=== PATIENT | female | born 1985 | race Caucasian/White ===

== ENCOUNTER 2021-11-24 16:47 | Outpatient (CLI) | payer OTHER, SELFPAY ==
--- NOTE | 2021-11-24 16:53 | US_ITS ---
EXAM: US pelvis, OB less than 14 weeks. HISTORY: viability TECHNIQUE: US OB Transvaginal COMPARISON: None. LIMITATIONS: None. UTERUS Size: 9.7 cm x 6.6 cm x 9.5 cm. Retroflexed. Masses: At least 5 uterine nodules and presumed fibroids ranging from 1 cm to 2.9 cm. The cervix is closed. There is no significant mass effect on the gestation sac. Largest fibroid 2.9 cm x 2.9 cm x 2.7 cm at the right fundus, separate from the gestation sac projecting to the left of midline. Gestational sac: Single gestational sac. Mean sac diameter 2.9 cm consistent with 8 weeks 1 day gestation. There is a curvilinear structure which may be part of a larger yolk sac in the single gestation sac or an incomplete septation, possibly from a nonviable twin , this is not measured but is roughly 9 mm on my measurement. Subchorionic hemorrhage: None. Yolk sac: Identified and normal. 4 mm. pole: [place]-rump length is 2 cm corresponding to 8 weeks 2 days gestation. Cardiac activity: heart rate is 161 beats per minute. OVARIES/ADNEXA Right: 1.9 cm x 1.2 cm x 1 1.5 cm with documented blood flow. Left: Not seen. OTHER: No fluid in the cul-de-sac. CONCLUSION: Single live IUP. Estimated gestational age 8 weeks sonographically. Indeterminate curvilinear structure in the gestation sac separate from the visible embryo and its yolk sac, indeterminate etiology, possibly additional larger yolk sac, uncertain etiology and significance. Consider short-term follow-up if it is thought to be indicated. Multi-fibroid uterus, no obvious mass effect on the gestation sac or lower uterine segment. The left ovary is not demonstrated. Electronically Signed: Marisol Toribio MD at 3:13 EDT , US/Transvaginal w/Preg US
== END 2021-11-24 23:59 | disposition home or self-care (01) ==
PROVIDERS: PCP Family Medicine; Referring Provider Obstetrics & Gynecology; Visit Provider Obstetrics & Gynecology
DX: O09.299 Supervision of pregnancy with other poor reproductive or obstetric history, unspecified trimester (principal); Z3A.00 Weeks of gestation of pregnancy not specified
CPT/HCPCS: 76817

== ENCOUNTER 2021-11-30 15:09 | Outpatient (CLI) | payer OTHER, SELFPAY ==
[2021-11-30 15:28] LABS: Absolute Lymphocyte Count 1.28 X10^3/uL (0.83-4.51); Absolute Neutrophil Count 6.1 X10^3/uL (2.0-7.7); Basophil# 0.03 X10^3/uL; Basophil% 0.4 % (0-1); Eosinophil# 0.23 X10^3/uL; Eosinophils% 2.8 % (0-5); Hematocrit 34.2 % (37-47); Hemoglobin 11.5 g/dL (12.0-15.0); Lymphocyte # 1.28 X10^3/ul (0.83-4.51); Lymphocyte % 15.7 % (19-41); Mean Corp Hgb Conc 33.6 g/dL (32-36); Mean Corpuscular Hgb 29.9 pg (27.0-32.0); Mean Corpuscular Volume 88.8 fL (81-99); Mean Platelet Vol. 9.3 fl (6.2-12.0); Monocyte# 0.49 X10^3/uL; NRBC Flagged by Analyzer 0 % (0-5); Neutrophil # 6.12 X10^3/uL (2.7-7.7); Neutrophil % 74.9 % (47-70); Platelet Count 285 K/mm3 (150-450); RBC Distribution Width CV 12.2 % (11.6-14.6); RBC Distribution Width SD 39.2 fl (35.1-43.9); Red Blood Count 3.85 M/mm3 (4.2-5.4); White Blood Count 8.2 K/mm3 (4.4-11.0)
[2021-11-30 18:13] LABS: Amphetamine Urine VISTA NEGATIVE (<1000 ng/mL); Barbiturate Urine VISTA NEGATIVE (< 200 ng/mL); Benzodiazepine Urine VISTA NEGATIVE (< 200 ng/mL); Cocaine Urine VISTA NEGATIVE (< 300 ng/mL); Ecstacy Urine VISTA NEGATIVE (< 500 ng/mL); Methadone Urine VISTA NEGATIVE (< 300 ng/mL); PCP Urine VISTA NEGATIVE (< 25 ng/mL); THC Urine VISTA NEGATIVE (< 50 ng/mL); Vista UDS pH Range 7
[2021-12-01 10:08] LABS: HIV - WCH Non-Reactive (Nonreactive); Hepatitis B Surface Antigen Non-Reactive (Nonreactive); Hepatitis C Antibody Non-Reactive (Nonreactive); Rubella IgG Reactive (Nonreactive); Syphilis Antibodies Non-reactive
[2021-12-05 12:01] LABS: Chlamydia By Nucleic Acid AMP Negative (Negative)
[2021-12-05 12:01] LABS: Thyroid Peroxidase AB 103 IU/mL (0-34)
[2021-12-05 12:19] LABS: Thyroglobulin Antibody 2.3 IU/mL (0.0-0.9)
[2021-12-05 12:28] LABS: Gonococcus By Nucleic Acid AMP Negative (Negative)
[2021-12-07 12:59] LABS: HPV APTIMA, High Risk Negative (Negative)
== END 2021-11-30 23:59 | disposition home or self-care (01) ==
PROVIDERS: PCP Family Medicine; Referring Provider Obstetrics & Gynecology; Visit Provider Obstetrics & Gynecology
DX: Z34.90 Encounter for supervision of normal pregnancy, unspecified, unspecified trimester (principal)
CPT/HCPCS: 36415; 80307; 85025; 86376; 86703; 86762; 86780; 86800; 86803; 86850; 86900; 86901; 87086; 87088; 87340; 87491; 87591; 87624; 88175; G0145

== ENCOUNTER → 2022-04-19 | Outpatient (CLI) | payer OTHER, SELFPAY ==
[2022-04-19 10:14] LABS: Absolute Neutrophil Count 6.7 X10^3/uL (2.0-7.7); Basophil# 0.02 X10^3/uL; Basophil% 0.2 % (0-1); Eosinophil# 0.16 X10^3/uL; Eosinophils% 1.9 % (0-5); Hematocrit 32.6 % (37-47); Hemoglobin 10.8 g/dL (12.0-15.0); Lymphocyte % 10.9 % (19-41); Mean Corp Hgb Conc 33.1 g/dL (32-36); Mean Corpuscular Hgb 30.1 pg (27.0-32.0); Mean Corpuscular Volume 90.8 fL (81-99); Mean Platelet Vol. 9.7 fl (6.2-12.0); NRBC Flagged by Analyzer 0 % (0-5); Neutrophil # 6.65 X10^3/uL (2.7-7.7); Neutrophil % 80.4 % (47-70); Platelet Count 250 K/mm3 (150-450); RBC Distribution Width CV 12.8 % (11.6-14.6); RBC Distribution Width SD 41.9 fl (35.1-43.9); Red Blood Count 3.59 M/mm3 (4.2-5.4); White Blood Count 8.3 K/mm3 (4.4-11.0)
[2022-04-19 10:20] LABS: Glucose Challenge Gest 1H 50g 88 mg/dL (70-140)
== END | disposition home or self-care (01) ==
LOC: PAVLAB 09:52
PROVIDERS: PCP Family Medicine; Referring Provider Obstetrics & Gynecology; Visit Provider Obstetrics & Gynecology
DX: O09.90 Supervision of high risk pregnancy, unspecified, unspecified trimester (principal); Z13.1 Encounter for screening for diabetes mellitus; Z3A.00 Weeks of gestation of pregnancy not specified
CPT/HCPCS: 36415; 82950; 85025

== ENCOUNTER → 2022-06-05 | Outpatient (CLI) | payer OTHER, SELFPAY ==
[2022-06-05 14:14] LABS: Absolute Lymphocyte Count 0.97 X10^3/uL (0.83-4.51); Absolute Neutrophil Count 6.9 X10^3/uL (2.0-7.7); Basophil# 0.01 X10^3/uL; Basophil% 0.1 % (0-1); Eosinophil# 0.22 X10^3/uL; Eosinophils% 2.6 % (0-5); Hemoglobin 12.3 g/dL (12.0-15.0); Lymphocyte # 0.97 X10^3/ul (0.83-4.51); Lymphocyte % 11.3 % (19-41); Mean Corp Hgb Conc 33.2 g/dL (32-36); Mean Corpuscular Hgb 30.8 pg (27.0-32.0); Mean Corpuscular Volume 92.7 fL (81-99); Mean Platelet Vol. 10.3 fl (6.2-12.0); Monocyte# 0.46 X10^3/uL; Monocyte% 5.4 % (0-10); NRBC Flagged by Analyzer 0 % (0-5); Neutrophil # 6.85 X10^3/uL (2.7-7.7); Neutrophil % 80.1 % (47-70); Platelet Count 265 K/mm3 (150-450); RBC Distribution Width SD 44.2 fl (35.1-43.9); Red Blood Count 3.99 M/mm3 (4.2-5.4); White Blood Count 8.6 K/mm3 (4.4-11.0)
== END | disposition home or self-care (01) ==
LOC: PAVLAB 13:55
PROVIDERS: PCP Family Medicine; Referring Provider Registered Nurse; Visit Provider Registered Nurse
DX: O99.019 Anemia complicating pregnancy, unspecified trimester (principal); Z3A.00 Weeks of gestation of pregnancy not specified
CPT/HCPCS: 36415; 85025

== ENCOUNTER → 2022-06-15 | Outpatient (CLI) | payer OTHER, SELFPAY | END | disposition home or self-care (01) | LOC: LABSPEC 06:37 | PROVIDERS: PCP Family Medicine; Visit Provider Obstetrics & Gynecology | DX: O09.90 Supervision of high risk pregnancy, unspecified, unspecified trimester (principal); Z3A.00 Weeks of gestation of pregnancy not specified | CPT/HCPCS: 87077; 87081; 87186 ==

== ENCOUNTER 2022-07-02 21:01 | Inpatient (IN) | payer OTHER, SELFPAY ==
[2022-07-02] VITALS (20 sets, daily range): BP systolic 105–134; BP diastolic 64–83; PULSE 64–92; TEMP 36.6; O2SAT 89–100; BMI 26.1
[2022-07-02] MEDS: LACTATED RINGERS 500 ML 999 ML IV ×2 (20:35→21:10)
[2022-07-02 21:10] LABS: Absolute Lymphocyte Count 1.27 X10^3/uL (0.83-4.51); Absolute Neutrophil Count 9.3 X10^3/uL (2.0-7.7); Basophil# 0.04 X10^3/uL; Basophil% 0.3 % (0-1); Eosinophil# 0.28 X10^3/uL; Eosinophils% 2.4 % (0-5); Hematocrit 38.8 % (37-47); Lymphocyte # 1.27 X10^3/ul (0.83-4.51); Lymphocyte % 10.9 % (19-41); Mean Corp Hgb Conc 33.5 g/dL (32-36); Mean Corpuscular Volume 89.4 fL (81-99); Mean Platelet Vol. 11.7 fl (6.2-12.0); Monocyte# 0.67 X10^3/uL; Monocyte% 5.8 % (0-10); NRBC Flagged by Analyzer 0 % (0-5); Neutrophil # 9.29 X10^3/uL (2.7-7.7); Neutrophil % 79.9 % (47-70); Platelet Count 204 K/mm3 (150-450); RBC Distribution Width SD 42.4 fl (35.1-43.9); Red Blood Count 4.34 M/mm3 (4.2-5.4); White Blood Count 11.6 K/mm3 (4.4-11.0)
[2022-07-02] MEDS: fentaNYL-bupivacaine (epidural) 100 ML BAG EPIDURAL (21:42)
[2022-07-02] MEDS: Lactated Ringers 1,000 ML 50 ML IV (22:00)
[2022-07-02] MEDS: 0.9% Saline Lock 10 ML Syringe IV (22:45)
[2022-07-02] MEDS: Ondansetron 4 MG/2 ML Vial IV (22:45)
[2022-07-03] VITALS (13 sets, daily range): BP systolic 111–135; BP diastolic 53–72; PULSE 56–99; RESP 16–18; TEMP 36.4–36.8; O2SAT 96–100
[2022-07-03] MEDS: Oxytocin 10 UNITS/ML Vial IM (00:18)
--- NOTE | 2022-07-03 00:42 | HP.PCM.OB_ITS ---
HPI - General General Date of Admission: 07/02/22 HPI Narrative GISELLE SCHWARTZ, is a 36 F who presents to L&D with consistent contractions, worsening. denies lof/vb. active fetus. Maternal Data Information DEBBIE Calculator Estimated Delivery Date Method Current WG Current Estimate 07/05/22 LMP (Certain) 39w 5d Final DEBBIE: 07/05/22 Final DEBBIE Source: US <20 weeks [facility] Medical History Anemia Asthma Autoimmune disease Autoimmune thyroiditis Blood clotting disorder Celiac disease Fat pad atrophy of foot Fatigue GERD (gastroesophageal reflux disease) Gingival recession H. 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] Specimen unsatisfactory for diagnosis Superficial varicosities Thyroid disorder TMJ (dislocation of temporomandibular joint) Uterine fibroid in Vitamin D deficiency Home Medications Saccharomyces boulardii 250 mg capsule 250 mg PO BID 11/03/19 [History Last Taken 07/01/22 21:00] digestive enzymes 1 cap PO DAILY 11/03/19 [History Last Taken 07/01/22 21:00] fluticasone propionate 115 mcg-salmeterol 21 mcg/actuation HFA inhaler (Advair HFA) 1 puff inhalation BID 11/03/19 [History Last Taken 07/02/22 08:00] prenat.vits,eddie,wby-npnx-enpzz 1 tab PO DAILY 11/03/19 [History Last Taken 07/01/22] levothyroxine 75 mcg capsule (Tirosint) 75 mcg PO DAILY 11/16/21 [History Last Taken 07/02/22 06:00] breast pump #1 ea 03/22/22 [Rx Last Taken Unknown] Allergy/AdvReac Type Severity Reaction Status Date / Time gluten Allergy Severe Unknown Verified 07/02/22 10:03 latex Allergy Intermediate Unknown Verified 07/02/22 10:03 Family History Father Anesthesia complication Arthritis Skin cancer Seasonal allergies stomach ulcer disease Sister Arthritis Arabella's disease adrenal fatigue Depression hormone problem Thyroid disorder Grandmother Arthritis Hx of blood clots Diabetes Heart disease Hypertension Osteoporosis CVA (cerebral vascular accident) Mother Hx of blood clots Hypertension CVA (cerebral vascular accident) Grandfather Cancer Myocardial infarction Heart disease Surgical History (Updated 07/02/22 @ 20:45 by Frannie Mead) History of cholecystectomy History of oral surgery History of sinus surgery History of surgery Social History adopted: No household members: spouse and children number of children: 3 current occupational status: employed 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 Date Name GA/Weeks Outcome Route Bth Weight Infant Gen Labor Lgth Anesthesia Del Locatn Provider FOB Unknown 04/27/13 Luke live - full term vacuum 8# 2 Male 21 hr epidural [place] Sade Solis Unknown 04/19/15 Wen live - full term 6# 15 Female 20 epidural [place] Sade Solis Unknown 07/10/16 Perez live - full term 8# 2 Male 6 hr epidural [place] Sade Solis Unknown 10/2020 SAB spontaneous Delivery Date: Last Updated by: Tamika Franklin NP, VENTILATION MECHANIC-C IOL. Benign hole heart-no issues. Delivery Date: Last Updated by: Tamika Franklin NP, VENTILATION MECHANIC-C no intervention Visit Details Expected Delivery Route/Plan Labor Preferences- CB/BF classes: no labor support person: Will labor intervention preferences: [] pain management options preferred: epidural cut cord/dad catch: cord : yes PP control planned: discussed, will use condoms discussed possible routes of delivery and associated risks: [] special requests: [] Plans Covid status: discussed Flu vaccine: discussed, declines Tdap vaccine: declined Rhogam: NA LARC form signed: yes Problem list reviewed and updated with the most current plan of care details and appropriate orders placed. Relevant counseling for the gestational age provided. Continue routine care and follow up unless otherwise noted in visit notes/problem list details OB Flowsheet Initial Weight: 134 lb Date -?-?-?-?-?-?-?-?-?-?-?-?- EGA Weight BP Urine Prot -?-?-?-?-?-?-?-?-?-?-?-?- Glucose FHR FuHt Pres Dilation -?-?-?-?-?-?-?-?-?-?-?-?- Effaced St Visit Note 11/30/21 -?-?-?-?-?-?-?-?-?-?-?-?- 9w 0d 134 lb (+0 oz) 126/80 -?-?-?-?-?-?-?-?-?-?-?-?- 160 -?-?-?-?-?-?-?-?-?-?-?-?- SM- CRL 2.2cm co ns with LMP second GS 10mm seen within GS 12/28/21 -?-?-?-?-?-?-?-?-?-?-?-?- 13w 0d 135 lb (+16 oz) 104/60 Negative -?-?-?-?-?-?-?-?-?-?-?-?- Negative 161 -?-?-?-?-?-?-?-?-?-?-?-?- JV- CRL measurin g appropriate for ga. second GS resolving pt reassured. 02/12/22 -?-?-?-?-?-?-?-?-?-?-?-?- 19w 4d 140 lb 4 oz (+6 lb 4 oz) 110/60 Negative -?-?-?-?--?-?-?-?-?-?-?-?- Negative 159 -?-?-?-?-?-?-?-?-?-?-?-?- MH-Feeling movem ent. No VB. Had MFM anatomy US today. Girl. Has had random nosebleed-cool mist vaporizer, vaseline to nares. Also random headaches- tylenol, caffeine. Consider promethazine. 03/22/22 -?-?-?-?-?-?-?-?-?-?-?-?- 25w 0d 144 lb (+10 lb) 114/68 Negative -?-?-?-?-?-?-?-?-?-?-?-?- Negative 155 -?-?-?-?-?-?-?-?-?-?-?-?- JV- anterior leon centa, not always feeling movement. discussed kick counts starting 28 weeks and nsts as needed for reassurance. gct next visit. plans to decline tdap. 04/19/22 -?-?-?-?-?-?-?-?-?-?-?-?- 29w 0d 146 lb (+12 lb) 122/74 Negative -?-?-?-?-?-?-?-?-?-?-?-?- Negative 150 -?-?-?-?-?-?-?-?-?-?-?-?- SM- no vb lof go od fm no regular ctx 05/15/22 -?-?-?-?-?-?-?-?-?-?-?-?- 32w 5d 149 lb 4 oz (+15 lb 4 oz) 110/58 Trace -?-?-?-?-?-?-?-?-?-?-?-?- Negative 144 32 -?-?-?-?-?-?-?-?-?-?-?--?- MH-No VB, LOF. G ood FM. Enc needs to take fe daily, alternate from PNV. Ck CBC next visit. 06/05/22 -?-?-?-?-?-?-?-?-?-?-?-?- 35w 5d 153 lb 8 oz (+19 lb 8 oz) 120/62 Negative -?-?-?-?-?-?-?-?-?-?-?-?- Negative 145 34 -?-?-?-?-?-?-?-?-?-?-?-?- LC- no vb,lof,ct x. good FM. taking iron, to re-eval CBC today. 06/14/22 -?-?-?-?-?-?-?-?-?-?-?-?- 37w 0d 157 lb (+23 lb) 129/67 Negative -?-?-?-?-?-?-?-?-?-?-?-?- Negative 134 37 Cephalic 2 -?-?-?-?-?-?-?-?-?-?-?-?- 50 -3 JV- no lof , vaginal bleeding, or dec fm. gbs collected. 06/20/22 -?-?-?-?-?-?-?-?-?-?-?-?- 37w 6d 156 lb (+22 lb) 136/62 Negative -?-?-?-?-?-?-?-?-?-?-?-?- Negative 148 38 Cephalic 2 -?-?-?-?-?-?-?-?-?-?-?-?- 50 -3 LC-no lof, vb,ctx. good fm. GBS positive, reviewed risk and benefits of antibiotics treatment. pt plans to decline abx treatment. 06/27/22 -?-?-?-?-?-?-?-?-?-?-?-?- 38w 6d 155 lb 4 oz (+21 lb 4 oz) 155/4 122/78 Negative -?-?-?-?-?-?-?-?-?-?-?-?- Negative 140 38 Cephalic 2 -?-?-?-?-?-?-?-?-?-?-?-?- 50 -3 LC-no lof, vb,ctx. doing well. ready for baby. discussed elective IOL, at this time will wait to see if cervix is more favorable on saturday. membrane sweep attempted today. 07/02/22 -?-?-?-?-?-?-?-?-?-?-?-?- 39w 4d 155 lb (+21 lb) 117/76 Negative -?-?-?-?-?-?-?-?-?-?-?-?- Negative 135 39 Cephalic 2 -?-?-?-?-?-?-?-?-?-?-?-?- 50 -2 LC- going well, no lof, vb. kayla q20 minutes. good FM. using EPO. NST FHR Rate Baby A Baseline: 135 Variability:: Moderate Accelerations:: 15 x 15 Decelerations:: None NST Reactive:: Yes FHR Category:: Category I Uterine Activity:: [id number] ROS Cardiovascular Cardiovascular: Denies abdominal pain, chest pain, diaphoresis, dyspnea, edema or fatigue Respiratory/Chest Respiratory/Chest: Denies change in mental status, chest congestion, chest tightness, cough, shortness of breath at rest, shortness of breath with exertion, breast mass, breast pain, breast skin changes, breast swelling, change in breast shape or nipple discharge Gastrointestinal Gastrointestinal: Denies diarrhea, hemorrhoids, nausea, vomiting or weight changes Genitourinary Genitourinary: Denies abdominal discomfort, burning urination, change in libido, change in urinary stream, contractions, difficulty urinating, dysuria, mo vement, low back pain, urinary frequency, urinary hesitancy, urinary incontinence or urinary urgency Musculoskeletal Musculoskeletal: Reports none Integumentary Integumentary: Reports none Neurologic Neurologic: Reports none Psychiatric Psychiatric: Reports none Endocrine Endocrinology: Reports none Hematologic/Lymphatic Hematologic/Lymphatic: Reports none Allergic/Immunologic Allergic/Immunologic: Reports none Vital Signs Vital Signs Vital Signs: 07/02/22 19:30 07/02/22 19:30 07/02/22 19:30 Temperature Temperature Source Pulse Rate 71 Blood Pressure 134/75 H BP Systolic 134 BP Diastolic 75 Pulse Ox 100 07/02/22 19:30 07/02/22 21:31 07/02/22 21:31 Temperature Temperature Source Pulse Rate 64 75 Blood Pressure BP Systolic BP Diastolic Pulse Ox 99 07/02/22 21:31 07/02/22 21:31 07/02/22 21:35 Temperature Temperature Source Pulse Rate 88 Blood Pressure 129/83 H BP Systolic 129 BP Diastolic 83 Pulse Ox 89 07/02/22 21:35 07/02/22 21:36 07/02/22 21:36 Temperature Temperature Source Pulse Rate 75 79 Blood Pressure BP Systolic BP Diastolic Pulse Ox 100 07/02/22 21:41 07/02/22 21:41 07/02/22 21:41 Temperature Temperature Source Pulse Rate 74 Blood Pressure 131/83 H BP Systolic 131 BP Diastolic 83 Pulse Ox 97 07/02/22 21:45 07/02/22 21:45 07/02/22 21:45 Temperature Temperature Source Pulse Rate 73 Blood Pressure 115/67 BP Systolic 115 BP Diastolic 67 Pulse Ox 92 07/02/22 21:46 07/02/22 21:46 07/02/22 21:51 Temperature Temperature Source Pulse Rate 85 Blood Pressure 126/72 H BP Systolic 126 BP Diastolic 72 Pulse Ox 100 07/02/22 21:51 07/02/22 21:51 07/02/22 21:55 Temperature Temperature Source Pulse Rate 73 Blood Pressure 127/71 H BP Systolic 127 BP Diastolic 71 Pulse Ox 100 07/02/22 21:56 07/02/22 21:56 07/02/22 22:01 Temperature Temperature Source Pulse Rate 79 Blood Pressure 127/69 H BP Systolic 127 BP Diastolic 69 Pulse Ox 100 07/02/22 22:01 07/02/22 22:02 07/02/22 22:02 Temperature Temperature Source Pulse Rate 78 77 Blood Pressure BP Systolic BP Diastolic Pulse Ox 98 07/02/22 22:05 07/02/22 22:05 07/02/22 22:07 Temperature Temperature Source Pulse Rate 92 78 Blood Pressure 126/68 H BP Systolic 126 BP Diastolic 68 Pulse Ox 07/02/22 22:07 07/02/22 22:10 07/02/22 22:10 Temperature Temperature Source Pulse Rate 82 Blood Pressure 105/82 H BP Systolic 105 BP Diastolic 82 Pulse Ox 93 07/02/22 22:12 07/02/22 22:12 07/02/22 22:15 Temperature Temperature Source Pulse Rate 77 Blood Pressure 105/82 H BP Systolic 105 BP Diastolic 82 Pulse Ox 99 07/02/22 22:15 07/02/22 22:18 07/02/22 22:18 Temperature 97.8 F Temperature Source Temporal Pulse Rate 87 Blood Pressure BP Systolic BP Diastolic Pulse Ox 07/02/22 22:47 07/02/22 22:47 07/02/22 23:36 Temperature Temperature Source Pulse Rate 71 Blood Pressure 128/67 H 131/64 H BP Systolic 128 131 BP Diastolic 67 64 Pulse Ox 07/02/22 23:36 07/02/22 23:36 07/02/22 23:36 Temperature 97.8 F Temperature Source Temporal Pulse Rate 76 Blood Pressure BP Systolic BP Diastolic Pulse Ox 07/03/22 00:40 07/03/22 00:40 Temperature Temperature Source Pulse Rate 82 Blood Pressure 135/57 H BP Systolic 135 BP Diastolic 57 Pulse Ox Weight Weight: 156 lb 11.979 oz Body Mass Index (BMI) 26.1 Physical Exam Const alert, oriented x3 and no apparent distress General Appearance: cooperative, comfortable and well kempt; Negative for in distress Orientation / Consciousness: awake and oriented to person Exam Limitations: no limitations HEENT normocephalic Mouth: oral and palatal mucosa normal Neck full ROM Chest inspection of chest normal Resp normal respiratory effort Effort and Inspection: able to speak in complete sentences and symmetric chest movement Cardio regular rate Peripheral Pulses: pulses 2+ throughout GI normal to inspection, nondistended, normoactive bowel sounds Inspection: gravid no CVA tenderness and appearance of the vagina normal External Female Exam: normal appearance of the urethra; Negative for external lesion OB / External & Speculum: external exam normal Manual OB Exam: estimated gestational size appropriate and presentation cephalic Uterus Palpation: Negative for uterus tender Extremity normal to inspection Skin no rashes or lesions noted Neuro deep tendon reflexes 2+ bilaterally and gait normal Motor Exam: strength 5/5 throughout and clonus absent Psych Activity / Motor Behavior: appropriate eye contact Speech: normal speech Labs Labs Labs: Blood Type O POSITIVE Antibody Screen NEGATIVE Hct 38.8 % (37-47) Hgb 13.0 g/dL (12.0-15.0) Pap Smear Negative Obstetrics US Syphilis Total Ab Non-reactive Rubella IgG Antibody Reactive (Nonreactive) Hep Bs Antigen Non-Reactive (Nonreactive) Chlamydia DNA (NICKY) Negative (Negative) Neisseria gonorrhoeae DNA (NICKY) Negative (Negative) HIV 1&2 Antibody Non-Reactive (Nonreactive) Glucose 1 Hr 50 gm 88 mg/dL (70-140) Assessment & Plan (1) Spontaneous onset of labor: COMMENT: at 39wks PLAN: Plan Patient presents IAL, plan expectant management for , pitocin/AROM PRN if needed. Pain management: plans epidural. GBS [positive, after discussing risk and benefits including respiratory illness, sepsis/, pt declines antibiotic use in labor, understands will need prolonged monitoring . Management of any complications: [none] I have reviewed the [facility] and made any clinically relevant updates.
--- NOTE | 2022-07-03 00:48 | OP.PCM_ITS ---
Assessment & Plan (1) Spontaneous onset of labor: COMMENT: at 39wks (2) (spontaneous vaginal delivery): Maternal Data Information DEBBIE Calculator Estimated Delivery Date Method Current WG Current Estimate 07/05/22 LMP (Certain) 39w 5d Vaginal Delivery Maternal Presentation Maternal Presentation: Active Labor Operative Information Date of Procedure: 07/03/22 Pre-Operative Diagnosis: spontaneous active labor Post-Operative Diagnosis: Surgery / Procedure Performed: Spontaneous Vaginal Delivery Type of Anesthesia: Epidural Drain: Loo to straight drain Estimated Blood Loss: 300 Time of Delivery: 00:09 Findings Description of Procedure: Patient began pushing and delivered the head in the OA presentation. The head was delivered atraumatically and a loose nuchal cord ?2 was identified and easily reduced over the infant's head. The anterior and posterior shoulders delivered without complication followed by the rest of the infant and the was placed on the maternal abdomen. Delayed cord clamping was employed for approximately 10 minutes. Cord was clamped and cut and gentle traction was applied to the cord and the placenta delivered spontaneously immediately following it was noted to be intact with three-vessel cord. The perineum and vagina were inspected and 2nd degree laceration that was repaired in usual fashion with 3-0 Vicryl. EBL was 300 cc. Patient and infant tolerated delivery well, entered recovery phase stable bonding skin to skin. Presentation: Vertex and BULMARO Amniotic Membrane Rupture Type: Spontaneous Time of Membrane Rupture: 2344 Amniotic Fluid Description: Lightly stained meconium Placental Delivery Description: Spontaneous Placenta Disposition: [facility] Cord Vessel Description: 3 Vessels Cord Entanglement: Around neck x 2, loose Nuchal Cord Compression: Without compression A Gender: Female (1 minute): 9 (5 minute): 9 Delayed Cord Clamping: Yes Post Vaginal Delivery Medications Given After Delivery: - (IM pitocin) Episiotomy Description: None Laceration: Perineal Extension/lac and 2nd degree Complication Complications: None Multi Select Codes Urinary/Genital Urinary/Genital CPT Codes: 80637 Vaginal Delivery [facility] ([facility] DEVELOPMENT [facility]ISTANT PLEASE NOTE)
--- NOTE | 2022-07-03 00:53 | DCINST_ITS ---
Discharge Instructions Diet Discharge Diet: No restrictions Activity Discharge Activity: May Not Drive and May Shower May resume sexual activity in: 6 weeks Weight Bearing Status: Full weight bearing Dressing / Incision Call your doctor if your incision/area has: Sudden Increased Bleeding, Increased Pain/ Swelling and Foul Smelling Discharge Call your doctor if you observe: Fever of 101 or Higher, Numbness or Tingling, Change in Color, Inability to urinate, Inability to have a bowel movement, Using more than 1 pad per hour, Shortness of breath, Dizziness, Fainting spells, Chest pain, Calf discomfort and Uncontrolled pain Follow Up Care Please Follow Up With: Suze James CNM When: 6 weeks , please call office to make an appointment. Congratulations on the of baby JAMI!!!!! Test Results: Test results from this visit will be discussed in further detail at your follow- up appointment, if applicable. Discharge Plan Admission Admit Date/Time: 07/02/22 21:01 Attending Provider: Suze James Primary Care Provider: Terrell Daly Discharge Orders/Prescriptions Prescriptions: No Action Advair HFA 115-21 mcg/actuation HFA aerosol inhaler 1 puff INHALATION BID prenat.vits,eddie,[id number] Tablet 1 tab PO DAILY digestive enzymes capsule 1 cap PO DAILY Rx Instructions: administer with food; swallow whole; do not crush/chew/dissolve/break/cut Saccharomyces boulardii 250 mg capsule 250 mg PO BID Rx Instructions: swallow whole levothyroxine [Tirosint] 75 mcg capsule 75 mcg PO DAILY (DME) breast pump Device See Rx Instructions .ROUTE .MEDSUPPLY Qty: 1 0RF Rx Instructions: As directed Referrals / Follow Up: Terrell Daly MD [Primary Care Provider] - Disposition Disposition (needs filled in before D/C Order can be placed): Home, Self Care
[2022-07-03] MEDS: Ibuprofen 600 MG Tablet PO ×4 (04:14→22:12)
[2022-07-03] MEDS: Levothyroxine 75 MCG Tablet PO (06:14)
[2022-07-03] MEDS: Prenatal Vits Tablet 1 TABLET PO (11:48)
[2022-07-03] MEDS: Senna/Docusate Sodium 1 Tablet PO (11:51)
[2022-07-04 00:24] VITALS: BP 104/54; PULSE 72; RESP 16; TEMP 36.2; O2SAT 97
[2022-07-04 03:35] VITALS: BP 108/53; PULSE 72; RESP 16; TEMP 36.2; O2SAT 97
[2022-07-04] MEDS: Levothyroxine 75 MCG Tablet PO (05:52)
[2022-07-04] MEDS: Ibuprofen 600 MG Tablet PO (06:10)
--- NOTE | 2022-07-04 07:57 | PCM.PN.OB ---
Subjective Subjective Patient doing well without complaints. Tolerating PO. Ambulating and voiding without difficulty. Feeding well. Denies chest pain, shortness of breath, calf pain/swelling, fevers, chills, lightheadedness. She wants to go home today if possible Objective Data Objective Data Vital Signs: Vital Signs Temp Pulse Resp BP Pulse Ox O2 Del Method 97.1 F L 72 16 108/53 L 97 Room Air 07/04/22 03:35 07/04/22 03:35 07/04/22 03:35 07/04/22 03:35 07/04/22 03:35 07/04/22 03:35 Oxygen Delivery Method Room Air Weight: 156 lb 11.979 oz Body Mass Index (BMI) 26.1 Intake & Output: Intake and Output for Last 24 Hours 07/02/22 07/03/22 07/04/22 23:59 23:59 23:59 Intake Total 1000 / 1000 115.83 / 115.83 Output Total 1850 / 1850 Balance 1000 / 1000 -1734.17 / -1734.17 Lab / Micro Data Result Diagrams: 07/02/22 20:35 Micro: Microbiology 07/02/22 21:20 Nasal Secretion SARS-CoV-2 Antigen (Rapid) - Final ROS Constitutional Constitutional: Denies chills, fatigue, fever(s), poor appetite or weakness Eyes Eyes: Denies blurry vision, change in vision, seeing flashes or spots in vision ENT HEENT: Denies dizziness, headache(s), loss taste/smell or sore throat Cardiovascular Cardiovascular: Denies chest pain, dizziness, dyspnea, irregular heart rhythm, palpitations or rapid heart rate Respiratory/Chest Respiratory/Chest: Denies chest tightness, cough, dyspnea or breast pain Gastrointestinal Gastrointestinal: Denies abdominal pain, constipation or vomiting Genitourinary Genitourinary: Denies dysuria or flank pain Musculoskeletal Musculoskeletal: Denies difficulty walking, joint pain, limited range of motion or numbness Neurologic Neurologic: Denies abnormal movements, abnormal speech, dizziness, numbness, seizure-like activity or syncope Psychiatric Psychiatric: Denies anxiety, behavioral changes, change in appetite, confusion, depression or suicidal thoughts Physical Exam Const alert, oriented x3 and no apparent distress General Appearance: cooperative and comfortable Resp normal respiratory effort Cardio regular rate GI normal to inspection, nondistended, normoactive bowel sounds GI Narrative: uterus is firm below umbilicus Palpation: soft Back/Spine no CVA tenderness and thoraco-lumbar ROM normal Extremity normal to inspection, no clubbing, cyanosis or edema, no calf tenderness and no pedal edema Psych mental status grossly normal, thought process normal, cooperative, affect normal, speech normal, activity/motor behavior normal, denies homicidal ideation and denies suicidal ideation Assessment & Plan (1) (spontaneous vaginal delivery): COMMENT: IAL at 39weeks, baby girl Matilda. PLAN: s/p PPD # 1 1. routine post delivery care 2. breast feeding- support given 3. rh positive 4. rubella immune 5. dc to home today
--- NOTE | 2022-07-04 08:16 | PCM.PN.OB ---
Subjective Subjective Patient doing well without complaints. Tolerating PO. Ambulating and voiding without difficulty. Feeding well. Denies chest pain, shortness of breath, calf pain/swelling, fevers, chills, lightheadedness. Objective Data Objective Data Vital Signs: Vital Signs Temp Pulse Resp BP Pulse Ox O2 Del Method 97.1 F L 72 16 108/53 L 97 Room Air 07/04/22 03:35 07/04/22 03:35 07/04/22 03:35 07/04/22 03:35 07/04/22 03:35 07/04/22 03:35 Oxygen Delivery Method Room Air Weight: 156 lb 11.979 oz Body Mass Index (BMI) 26.1 Intake & Output: Intake and Output for Last 24 Hours 07/02/22 07/03/22 07/04/22 23:59 23:59 23:59 Intake Total 1000 / 1000 115.83 / 115.83 Output Total 1850 / 1850 Balance 1000 / 1000 -1734.17 / -1734.17 Lab / Micro Data Result Diagrams: 07/02/22 20:35 Micro: Microbiology 07/02/22 21:20 Nasal Secretion SARS-CoV-2 Antigen (Rapid) - Final ROS ROS Narrative see HPI Physical Exam Const alert, oriented x3 and no apparent distress HEENT normocephalic Eyes PERRL Neck full ROM Chest inspection of chest normal and inspection of breasts normal Resp normal respiratory effort and normal air movement GI soft to palpation GI Narrative: fundus 2below U, Narrative: perineum with good approximation. normal small amount of lochia, no clots Extremity normal to inspection, full ROM, no calf tenderness and no pedal edema Psych mental status grossly normal Assessment & Plan (1) (spontaneous vaginal delivery): COMMENT: IAL at 39weeks, baby girl Matilda. PLAN: s/p PPD # 1 1. routine post delivery care 2. breast feeding- support given 3. rh positive 4. rubella immune 5. 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 on tirosint. (3) AMA (advanced maternal age) multigravida 35+: COMMENT: declines genetic screening. plan growth us at 36 weeks. recommended deliver at 39-40 weeks. currently expectant mgmt. (4) GBS (group B Streptococcus carrier), +RV culture, currently : COMMENT: PCN in labor, plans on declining. risk and benefits of treatments reviewed. (5) Breast feeding status of mother:
[2022-07-04 10:00] VITALS: BP 121/43; PULSE 88; RESP 16; TEMP 36.4; O2SAT 97
--- NOTE | 2022-07-04 10:52 | NURSING ---
Nursing assessment completed at this time by Jeannette Vick RN with this RN at bedside observing.
== END 2022-07-04 12:57 | disposition home or self-care (01) | DRG 806 ==
LOC: WP 21:07 → WPOUT 07-03 10:08
PROVIDERS: Admitting Provider Registered Nurse; PCP Family Medicine; Visit Provider Registered Nurse
DX: O99.284 Endocrine, nutritional and metabolic diseases complicating childbirth (principal); Z37.0 Single live birth; E72.12 Methylenetetrahydrofolate reductase deficiency; E03.9 Hypothyroidism, unspecified; E06.3 Autoimmune thyroiditis; J45.909 Unspecified asthma, uncomplicated; O77.0 Labor and delivery complicated by meconium in amniotic fluid; O69.81X0 Labor and delivery complicated by cord around neck, without compression, not applicable or unspecified; Z3A.39 39 weeks gestation of pregnancy; Z79.51 Long term (current) use of inhaled steroids; O99.824 Streptococcus B carrier state complicating childbirth; O70.1 Second degree perineal laceration during delivery; Z79.890 Hormone replacement therapy; O99.52 Diseases of the respiratory system complicating childbirth
CPT/HCPCS: 59025; 59050; 85025; 86850; 86900; 86901; 87426; 99218; J7120; A4216; G0378; J2405

== ENCOUNTER → 2022-09-03 | Outpatient (CLI) | payer OTHER, SELFPAY ==
[2022-09-03 13:25] LABS: T4 Free Direct 1.29 ng/dL (0.76-1.46); Thyroid Stim Hormone (TSH) 0.02 uIU/mL (0.358-3.74)
== END | disposition home or self-care (01) ==
LOC: LAB 12:20
PROVIDERS: PCP Family Medicine
DX: E03.9 Hypothyroidism, unspecified (principal)
CPT/HCPCS: 36415; 84439; 84443

== ENCOUNTER → 2022-09-03 | Outpatient (CLI) | payer OTHER, SELFPAY ==
[2022-09-06 21:54] LABS: HPV APTIMA, High Risk Negative (Negative)
== END | disposition home or self-care (01) ==
LOC: LABSPEC 12:16
PROVIDERS: PCP Family Medicine; Visit Provider Registered Nurse
DX: Z12.4 Encounter for screening for malignant neoplasm of cervix (principal)
CPT/HCPCS: 87624; 88175; G0145

== ENCOUNTER → 2022-09-11 | Outpatient (CLI) | payer OTHER, SELFPAY ==
--- NOTE | 2022-09-11 10:16 | US_ITS ---
STUDY: ULTRASOUND OF THE FEMALE PELVIS - COMPLETE REASON FOR EXAM: Female, 37 years old. Fibroids LMP: No LMP since recent childbirth. TECHNIQUE: Transvaginal TECHNICAL QUALITY: Adequate. COMPARISON: None. FINDINGS: The uterus is anteverted and is in a midline position. The uterus measures 9.3 cm x 7.2 cm x 5.2 cm. Normal uterine cervix. The endometrium measures 5.0 mm in thickness, and is hyperechoic. There is no demonstrated endometrial mass. Fibroids are seen. The largest measures 1.7 cm x 1.6 x 1.6. I.U.D. - The patient does not have an I.U.D. The right ovary is visualized. The right ovary measures 2.7 cm x 2.6 cm x 1.8 cm. There is no right ovarian cyst or ovarian mass. There is no visualized right adnexal mass or complex lesion. There is normal arterial and normal venous vascularity. The left ovary is visualized. The left ovary measures 2.9 cm x 2.1 cm x 1.3 cm. There is no left ovarian cyst or ovarian mass. There is no visualized left adnexal mass or complex lesion. There is normal arterial and normal venous vascularity. There is no fluid in the cul-de-sac. US/Transvaginal Non- IMPRESSION: Fibroid uterus. Electronically Signed: Wilson Jeter MD at 15:23 EST ,
== END | disposition home or self-care (01) ==
LOC: US 10:15
PROVIDERS: PCP Family Medicine; Referring Provider Registered Nurse; Visit Provider Registered Nurse
DX: O34.10 Maternal care for benign tumor of corpus uteri, unspecified trimester (principal); O99.891 Other specified diseases and conditions complicating pregnancy; D25.9 Leiomyoma of uterus, unspecified; Z3A.00 Weeks of gestation of pregnancy not specified
CPT/HCPCS: 76830

== ENCOUNTER → 2023-08-02 | Outpatient (CLI) | payer OTHER, SELFPAY ==
[2023-08-02 16:25] LABS: Absolute Neutrophil Count 6.6 X10^3/uL (2.0-7.7); Basophil# 0.03 X10^3/uL; Basophil% 0.3 % (0-1); Eosinophil# 0.29 X10^3/uL; Eosinophils% 3.4 % (0-5); Hematocrit 35.3 % (37-47); Hemoglobin 11.8 g/dL (12.0-15.0); Lymphocyte % 13.9 % (19-41); Mean Corp Hgb Conc 33.4 g/dL (32-36); Mean Corpuscular Hgb 29.6 pg (27.0-32.0); Mean Corpuscular Volume 88.7 fL (81-99); Mean Platelet Vol. 9.6 fl (6.2-12.0); Monocyte# 0.47 X10^3/uL; Monocyte% 5.4 % (0-10); NRBC Flagged by Analyzer 0 % (0-5); Neutrophil # 6.62 X10^3/uL (2.7-7.7); Neutrophil % 76.7 % (47-70); Platelet Count 310 K/mm3 (150-450); RBC Distribution Width CV 12.6 % (11.6-14.6); RBC Distribution Width SD 41.2 fl (35.1-43.9); Red Blood Count 3.98 M/mm3 (4.2-5.4); White Blood Count 8.6 K/mm3 (4.4-11.0)
[2023-08-02 17:52] LABS: Iron 61 ug/dL (50-170); Iron Binding Capacity,Total 285 ug/dL (250-450); PERCENT IRON SATURATION 21.4 % (15.0-55.0)
[2023-08-02 19:44] LABS: HIV - WCH Non-Reactive (Nonreactive); Hepatitis B Surface Antigen Non-Reactive (Nonreactive); Hepatitis C Antibody Non-Reactive (Nonreactive); Rubella IgG Reactive (Nonreactive); Syphilis Antibodies Non-reactive; Vitamin B12 440 pg/mL (211-911)
[2023-08-05 11:07] LABS: Vitamin D 1,25-Dihydroxy 88.9 pg/mL (24.8-81.5)
[2023-08-06 10:09] LABS: Chlamydia By Nucleic Acid AMP Negative (Negative); Gonococcus By Nucleic Acid AMP Negative (Negative)
== END | disposition home or self-care (01) ==
PROVIDERS: PCP Family Medicine; Referring Provider Registered Nurse; Visit Provider Registered Nurse
DX: Z34.90 Encounter for supervision of normal pregnancy, unspecified, unspecified trimester (principal); K90.0 Celiac disease
CPT/HCPCS: 36415; 82607; 82652; 82746; 83540; 83550; 85025; 86703; 86762; 86780; 86803; 86850; 86900; 86901; 87086; 87340; 87491; 87591

== ENCOUNTER 2023-12-16 13:16 | Outpatient (CLI) | payer OTHER, SELFPAY ==
[2023-12-16 13:47] LABS: Absolute Lymphocyte Count 0.97 X10^3/uL (0.83-4.51); Absolute Neutrophil Count 6.8 X10^3/uL (2.0-7.7); Basophil# 0.02 X10^3/uL; Basophil% 0.2 % (0-1); Eosinophil# 0.17 X10^3/uL; Hematocrit 35.1 % (37-47); Hemoglobin 11.6 g/dL (12.0-15.0); Lymphocyte # 0.97 X10^3/ul (0.83-4.51); Lymphocyte % 11.6 % (19-41); Mean Corpuscular Hgb 30.1 pg (27.0-32.0); Mean Corpuscular Volume 90.9 fL (81-99); Mean Platelet Vol. 9.7 fl (6.2-12.0); Monocyte# 0.39 X10^3/uL; Monocyte% 4.7 % (0-10); NRBC Flagged by Analyzer 0 % (0-5); Neutrophil # 6.79 X10^3/uL (2.7-7.7); Neutrophil % 81.3 % (47-70); Platelet Count 260 K/mm3 (150-450); RBC Distribution Width CV 14.1 % (11.6-14.6); RBC Distribution Width SD 46.7 fl (35.1-43.9); Red Blood Count 3.86 M/mm3 (4.2-5.4); White Blood Count 8.4 K/mm3 (4.4-11.0)
[2023-12-16 14:18] LABS: Glucose Challenge Gest 1H 50g 99 mg/dL (70-140); T4 Free Direct 0.96 ng/dL (0.76-1.46); Thyroid Stim Hormone (TSH) 1.61 uIU/mL (0.358-3.74)
[2023-12-16 14:36] LABS: HIV - WCH Non-Reactive (Nonreactive); Syphilis Antibodies Non-reactive
== END 2023-12-16 23:59 | disposition home or self-care (01) ==
LOC: LAB 13:19
PROVIDERS: PCP Family Medicine; Referring Provider Obstetrics & Gynecology; Visit Provider Obstetrics & Gynecology
DX: O09.90 Supervision of high risk pregnancy, unspecified, unspecified trimester (principal); E03.9 Hypothyroidism, unspecified; Z13.1 Encounter for screening for diabetes mellitus; Z3A.00 Weeks of gestation of pregnancy not specified
CPT/HCPCS: 36415; 82950; 84439; 84443; 85025; 86703; 86780

== ENCOUNTER → 2024-01-15 | Outpatient (CLI) | payer OTHER, SELFPAY ==
--- NOTE | 2024-01-15 16:19 | US_ITS ---
ACR Level 3 findings have been noted. An addendum which confirms receipt of the report will follow. STUDY: Ultrasound OB limited 1 or more fetus REASON FOR EXAM: Female, 38 years old wellbeing -- 32 Weeks Provided datin weeks 5 days correlating with March 06, 2024 delivery date PRIOR ULTRASOUND: September 11, 2022 TECHNIQUE: Transabdominal OB ultrasound grayscale color flow and M-mode Doppler FINDINGS: There is a single intrauterine fetus. The fetus is in a breech presentation. There is demonstrated cardiac activity with a heart rate of 130 bpm. There is a normal amniotic fluid volume. The largest amniotic fluid pocket measures 5.8 cm. The amniotic fluid index (GUNNAR) is 14.8 cm. The placenta is anterior, grade 1, with multiple placental lakes. No evidence of abruption or previa. The cervix is obscured. Single nuchal cord noted. BIOMETRY: BPD: 7.5 cm: 30 weeks, 1 days HC: 29.4 cm: 32 weeks, 3 days AC: 27.5 cm: 31 weeks, 4 days FL: 6.0 cm: 31 weeks, 3 days age by current US: 31 weeks, 4 days. DEBBIE by current US: March 14, 2024. Estimated weight: 1759 grams, +/- 264 grams, 11 percentile compared to prior dating US/OB Limited With Biometrics IMPRESSION: Single live intrauterine with normal heart rate. Single nuchal cord. Current breech presentation. Gestational age by biometry is concordant with provided dating. Estimated weight at the 11th percentile compared to prior dating. Consider follow-up 2-4 with growth scan. Electronically Signed: Willis Kamara MD at 20:36 EDT ,
== END | disposition home or self-care (01) ==
LOC: OPUS 16:17 → US 16:18
PROVIDERS: PCP Family Medicine; Referring Provider Nurse Practitioner Women's Health; Visit Provider Nurse Practitioner Women's Health
DX: O26.849 Uterine size-date discrepancy, unspecified trimester (principal); Z3A.00 Weeks of gestation of pregnancy not specified
CPT/HCPCS: 76816

== ENCOUNTER 2024-01-24 10:10 | Outpatient (CLI) | payer OTHER, SELFPAY ==
[2024-01-24 10:20] VITALS: BMI 25.5
[2024-01-24 10:43] VITALS: BP 111/58; PULSE 95; RESP 16; TEMP 36.6; O2SAT 97
[2024-01-24 11:07] LABS: ROM Internal Control Test YES-OK TO RESULT pt. (Internal QC); ROM Patient Test Negative (Negative); Record Kit Lot#, ROM+ K1866
--- NOTE | 2024-02-23 07:10 | OB.TRI.PN_ITS ---
Progress Notes Date of Service: 01/24/24 Progress Note: Patient presents for triage evaluation secondary to possible ROM FHT: 1450Moderate variability reactive no decelerations category I tracing [place]: no regular Contractions Assessment and plan: amniotic membrane sintact false labor Reactive NST, reassuring maternal and status patient discharged to home to follow-up as shceudled. See problem list details for additional plan information. Laboratory Studies: Laboratory Tests 01/24/24 Range/Units 10:35 Vag Amniotic Fld Detect Negative (Negative) Charges/Coding Procedures Urinary/Genital 52xxx-59xxx: [id number] non-stress test Interp
== END 2024-01-24 11:25 | disposition home or self-care (01) ==
LOC: WPOUT 10:17 → WP 10:17
PROVIDERS: PCP Family Medicine; Referring Provider Obstetrics & Gynecology; Visit Provider Obstetrics & Gynecology
DX: O47.9 False labor, unspecified (principal); Z3A.00 Weeks of gestation of pregnancy not specified
CPT/HCPCS: 59025; 59050; 84112; 99221; G0378

== ENCOUNTER → 2024-01-27 | Outpatient (CLI) | payer OTHER, SELFPAY ==
[2024-01-27 15:40] LABS: T4 Free Direct 1.04 ng/dL (0.76-1.46); Thyroid Stim Hormone (TSH) 0.91 uIU/mL (0.358-3.74)
== END | disposition home or self-care (01) ==
LOC: PAVLAB 15:05
PROVIDERS: PCP Family Medicine
DX: O99.280 Endocrine, nutritional and metabolic diseases complicating pregnancy, unspecified trimester (principal); E03.9 Hypothyroidism, unspecified; Z3A.00 Weeks of gestation of pregnancy not specified
CPT/HCPCS: 36415; 84439; 84443

== ENCOUNTER → 2024-02-10 | Outpatient (CLI) | payer OTHER, SELFPAY ==
--- NOTE | 2024-02-10 08:53 | US_ITS ---
STUDY: SECOND AND THIRD TRIMESTER OBSTETRICAL ULTRASOUND - LIMITED REASON FOR EXAM: Female, 38 years old well being -- 36 Weeks LMP: May 31, 2023. PRIOR ULTRASOUND: Comparison is made with prior study dated January 15, 2024. TECHNIQUE: Transabdominal TECHNICAL QUALITY: Adequate. FINDINGS: There is a single intrauterine fetus. The fetus is in a cephalic presentation. There is demonstrated cardiac activity with a heart rate of 147 bpm. There is a normal amniotic fluid volume. The largest amniotic fluid pocket measures 4 cm x 8.2 cm. The amniotic fluid index (GUNNAR) is 13.5 cm. The placenta is anterior in location and is not low lying. There are Grade 2 placental changes. The cervix measures 4.2 cm in length. BIOMETRY: BPD: 8.75 cm: 35 weeks, 3 days HC: 32.47 cm: 36 weeks, 5 days AC: 30.39 cm: 34 weeks, 2 days FL: 6.64 cm: 34 weeks, 1 days Age by LMP: 36 weeks, 3 days. DEBBIE by LMP: March 06, 2024. age by prior US: 35 weeks, 2 days. DEBBIE by prior US: March 14, 2024. age by current US: 35 weeks, 4 days. DEBBIE by current US: March 12, 2024. Estimated weight: 2465 grams, +/- 370 grams, 12.6 percentile. The umbilical cord is seen adjacent to the neck. US/OB Limited With Biometrics IMPRESSION: Single live intrauterine gestation with a mean gestational age of 35 weeks and 2 days. The measurements obtained today fall within normal expected range. The umbilical cord is seen adjacent to the neck. Electronically Signed: Wilson Jeter MD at 7:32 EDT ,
== END | disposition home or self-care (01) ==
PROVIDERS: PCP Family Medicine; Referring Provider Nurse Practitioner Women's Health; Visit Provider Nurse Practitioner Women's Health
DX: O09.90 Supervision of high risk pregnancy, unspecified, unspecified trimester (principal); Z3A.00 Weeks of gestation of pregnancy not specified
CPT/HCPCS: 76816

== ENCOUNTER → 2024-02-11 | Outpatient (CLI) | payer OTHER, SELFPAY | END | disposition home or self-care (01) | PROVIDERS: PCP Family Medicine; Visit Provider Advanced Practice Midwife | DX: O09.93 Supervision of high risk pregnancy, unspecified, third trimester (principal); Z3A.00 Weeks of gestation of pregnancy not specified | CPT/HCPCS: 87077; 87081; 87186 ==

== ENCOUNTER 2024-03-02 07:18 | Inpatient (IN) | payer OTHER, SELFPAY ==
[2024-03-02] VITALS (63 sets, daily range): BP systolic 98–128; BP diastolic 52–72; PULSE 58–84; RESP 15–16; TEMP 36.3–36.9; O2SAT 88–100; BMI 25.8
--- NOTE | 2024-03-02 07:40 | HP.PCM.OB_ITS ---
HPI - General General Date of Admission: 03/02/24 Date of Service: 03/02/24 HPI Narrative GISELLE SCHWARTZ, is a 38 F , 39.3 weeks who presents to unit for IOL. Maternal Data Information DEBBIE Calculator Estimated Delivery Date Method Current WG Current Estimate 03/06/24 LMP (Certain) 39w 3d Final DEBBIE: 03/06/24 Final DEBBIE Source: US >20 weeks Gestational age: 39.3 weeks PFSH PFSH Medical History AMA (advanced maternal age) multigravida 35+ Seasonal allergies (spontaneous vaginal delivery) Infertility Thyroid disorder Blood clotting disorder Superficial varicosities Autoimmune disease GBS (group B Streptococcus carrier), +RV culture, currently Anemia Breast feeding status of mother Uterine fibroid in Specimen unsatisfactory for diagnosis History of infertility MTHFR mutation TMJ (dislocation of temporomandibular joint) Fat pad atrophy of foot Gingival recession leaky gut Arabella's disease GERD (gastroesophageal reflux disease) Megavitamin-B6 syndrome Vitamin D deficiency Autoimmune thyroiditis Selective deficiency of immunoglobulin a [iga] Other specified metabolic disorders Malabsorption H. pylori infection Joint pain Asthma Fatigue Hypoglycemia Celiac disease Home Medications ?Medication ?Instructions ?Recorded ?Last Taken ?Type Saccharomyces boulardii 250 mg 250 mg PO BID 11/03/19 07/01/22 21:00 History capsule digestive enzymes 1 cap PO DAILY 11/03/19 07/01/22 21:00 History fluticasone propionate 115 1 puff inhalation BID 11/03/19 07/02/22 08:00 History mcg-salmeterol 21 mcg/actuation HFA inhaler (Advair HFA) prenat.vits,eddie,[id number] 1 tab PO DAILY 11/03/19 07/01/22 History ascorbic acid (vitamin C) 500 mg mg PO 07/26/23 Unknown History capsule cholecalciferol (vitamin D3) 25 25 mcg PO DAILY 07/26/23 Unknown History mcg (1,000 unit) capsule levothyroxine 75 mcg capsule 88 mcg PO DAILY 07/26/23 Unknown History (Tirosint) levothyroxine 88 mcg capsule 88 mcg PO DAILY 07/26/23 Unknown History magnesium chelate, malate 360 mg PO QHS 07/26/23 Unknown History Allergy/AdvReac Type Severity Reaction Status Date / Time gluten Allergy Severe Unknown Verified 02/28/24 14:03 latex Allergy Intermediate Unknown Verified 02/28/24 14:03 Family History Father Anesthesia complication Arthritis Skin cancer Seasonal allergies stomach ulcer disease Sister Arthritis Arabella's disease adrenal fatigue Depression hormone problem Thyroid disorder Family history of recurrent miscarriage 5 miscarriages prior to successful Grandmother Arthritis Hx of blood clots Diabetes Heart disease Hypertension Osteoporosis CVA (cerebral vascular accident) Mother Hx of blood clots Hypertension CVA (cerebral vascular accident) Grandfather Cancer Myocardial infarction Heart disease Surgical History History of surgery History of sinus surgery History of oral surgery History of cholecystectomy Social History adopted: No household members: spouse and children number of children: 4 current occupation: [employer] pets and animals: No history of recent travel: No sexually active: Yes Smoking Status: Never smoker alcohol intake: never substance use type: does not use diet: gluten free well-balanced diet: daily or most days caffeine: Yes (3-4 times per week) Type: carbonated beverages eating out: rarely or never during the past year weight has: decreased > 10 lbs what type of physical activity do you participate in: walking and yoga frequency: 3-4 times per week ugo/religious: Tenriism seatbelt use: always do you feel safe at home: Yes additional social history: [employer] History 6 Elective abortions Hx Para 4 Spontaneous abortions 1 Hx # Term Pregnancies Ectopic pregnancies Hx # Pregnancies Multiple births # of living children 4 Past Pregnancies Del. Date Name GA/Weeks Outcome Route Bth Weight Gen Labor Lgth Anesthesia Del Locatn Provider FOB Unknown 04/27/13 Luke live - full term 8# 2 Male 21 hr epidural [place] Sade Solis Unknown 04/19/15 Wen live - full term vacuum 6# 15 Female 20 epidural [place] Sade Solis Unknown 07/10/16 Perez live - full term 8# 2 Male 6 hr epidural [place] Sade Solis Unknown 10/2020 SAB spontaneous 07/03/22 Matilda 39 live - full term 7lbs 1oz Female ep idural [facility] Suze James CNM Delivery Date: Last Updated by: Tamika Franklin NP, CONSERVATION EDUCATOR-C IOL. Benign hole heart-no issues. Delivery Date: Last Updated by: Tamika Franklin NP, CONSERVATION EDUCATOR-C no intervention Delivery Date: 07/03/22 Last Updated by: Kelli Small see problem list for complications Visit Details Expected Delivery Route/Plan Labor Preferences- CB/BF classes:no labor support person: Will labor intervention preferences: [] pain management options preferred: epidural cut cord/dad catch: cord : yes PP control planned: discussed discussed possible routes of delivery and associated risks: [] special requests: [] Plans Covid status: declined Flu vaccine: declined Tdap vaccine: declines Rhogam: na LARC form signed: yes Problem list reviewed and updated with the most current plan of care details and appropriate orders placed. Relevant counseling for the gestational age provided. Continue routine care and follow up unless otherwise noted in visit notes/problem list details OB Flowsheet Initial Weight: 136 lb Date -?-?-?-?-?-?-?-?-?-?-?-?- EGA Weight BP Urine Prot -?-?-?-?-?-?-?-?-?-?-?-?- Glucose FHR FuHt Pres Dilation -?-?-?-?-?-?-?-?-?-?-?-?- Effaced St Visit Note 08/02/23 -?-?-?-?-?-?-?-?-?-?-?-?- 9w 0d 136 lb (+0 oz) 111/67 -?-?-?-?-?-?-?-?-?-?-?-?- 175 -?-?-?-?-?-?-?-?-?-?-?-?- LC- crl con with lmp. LC- crl con with lmp.decline s nipt. adding folate, b12, iron studies for celiac. endo following tsh. 08/30/23 -?-?-?-?-?-?-?-?-?-?-?--?- 13w 0d 137 lb (+16 oz) 109/70 Negative -?-?-?-?-?-?-?-?-?-?-?-?- Negative 168 -?-?-?-?-?-?-?-?-?-?-?-?- KW- no vb/edson romero. Formal US today 09/26/23 -?-?-?-?-?-?-?-?-?-?-?-?- 16w 6d 140 lb (+4 lb) 99/63 -?-?-?-?-?-?-?-?-?-?-?-?- 150 -?-?-?-?-?-?-?-?-?-?-?-?- SM- no vb lof go od fm no regular ctx 10/24/23 -?-?-?-?-?-?-?-?-?-?-?-?- 20w 6d 141 lb (+5 lb) 107/67 -?-?-?-?-?-?-?-?-?-?-?-?- 150 -?-?-?-?-?-?-?-?-?-?-?-?- SM- no vb shanta romero, co palpitations, increasing and having some SOB with it. refer to pcp and will get EKG 11/18/23 -?-?-?-?-?-?-?-?-?-?-?-?- 24w 3d 146 lb 8 oz (+10 lb 8 oz) 101/56 Negative -?-?-?-?-?-?-?-?-?-?-?-?- Negative 150 24 -?-?-?-?-?-?-?-?-?-?-?-?- SM- no vb lof go od fm no regula ctx SOB and palpitations resolved 12/16/23 -?-?-?-?-?-?-?-?-?-?-?-?- 28w 3d 154 lb 4 oz (+18 lb 4 oz) 102/60 Negative -?-?-?-?-?-?-?-?-?-?-?-?- Negative 154 26 Transverse -?-?-?-?-?-?-?-?-?-?-?-?- MH-No VB, LOF. G ood FM. Varicosities bilateral lower legs and on on right labia-discussed management. 12/31/23 -?-?-?-?-?-?-?-?-?-?-?-?- 30w 4d 152 lb 8 oz (+16 lb 8 oz) 106/70 Negative -?-?-?-?-?-?-?-?-?-?-?-?- Negative 142 27 Unstable -?-?-?-?-?-?-?-?-?-?-?-?- -No VB, LOF. G ood FM. SGA and will get US 01/17/24 -?-?-?-?-?-?-?-?-?-?-?-?- 33w 0d 153 lb 8 oz (+17 lb 8 oz) 124/67 Negative -?-?-?-?-?-?-?-?-?-?-?-?- Negative 150 31 Breech -?-?-?-?-?-?-?-?-?-?-?-?- LC-no vb/lof/ctx good fm.11% on growth. obtaining repeat in 2-4 weeks. 01/27/24 -?-?-?-?-?-?-?-?-?-?-?-?- 34w 3d 157 lb 2 oz (+21 lb 2 oz) 108/70 Negative -?-?-?-?-?-?-?-?-?-?-?-?- Negative 150 32 -?-?-?-?-?-?-?-?-?-?-?-?- KW- no vb/lof/ct x. good fm. repeat us at 36 weeks 02/11/24 -?-?-?-?-?-?-?-?-?-?-?-?- 36w 4d 156 lb (+20 lb) 115/72 -?-?-?-?-?-?-?-?-?-?-?-?- 145 35 Cephalic 2.5 -?-?-?-?-?-?-?-?-?-?-?-?- 50 -2 KW- no vb/ lof/ctx. good fm. GBS today growth is at 12.6% 02/21/24 -?-?-?-?-?-?-?-?-?-?-?-?- 38w 0d 156 lb 6 oz (+20 lb 6 oz) 112/73 Negative -?-?-?-?-?-?-?-?-?-?-?-?- Negative 145 37 Cephalic -?-?-?-?-?-?-?-?-?-?-?-?- LC- no vb/ctx/lo f. good fm. MFM consult showing EFW and AC now at 31%. no evidence of FGR. nst reactive today. unable to reach internal os, external os 2.5cm. GBS positive, reviewed treatment. pt plans on declining. r/b/a reviewed 02/28/24 -?-?-?-?-?-?-?-?-?-?-?-?- 39w 0d 158 lb (+22 lb) 107/68 Negative -?-?-?-?-?-?-?-?-?-?-?-?- Negative 140 39 Cephalic 3 -?-?-?-?-?-?-?-?-?-?-?-?- 60 -2 SM- no vb lof good fm no regular ctx membranes swept, plan IOL next week prefers replenishment merchandising associate IOL ROS Constitutional Constitutional: Denies change in weight, fatigue, fever(s), headache(s), poor appetite or weakness Eyes Eyes: Denies blurry vision, change in vision, floaters, seeing flashes or spots in vision ENT HEENT: Denies dizziness, headache(s), loss taste/smell or sore throat Cardiovascular Cardiovascular: Denies chest pain, dizziness, dyspnea, irregular heart rhythm, lightheadedness, palpitations or rapid heart rate Respiratory/Chest Respiratory/Chest: Denies change in mental status, chest tightness, cough, dyspnea or breast pain Gastrointestinal Gastrointestinal: Denies anorexia, chewing difficulty, constipation, diarrhea or weight changes Genitourinary Genitourinary: Denies difficulty urinating, dysuria, flank pain, genital pain, urinary frequency or urinary urgency Musculoskeletal Musculoskeletal: Denies back pain, difficulty walking, extremity pain, joint pain, muscle cramps or muscle weakness Integumentary Integumentary: Denies lesions or unusual bruising Neurologic Neurologic: Denies abnormal movements, abnormal speech, dizziness, numbness, seizure-like activity, syncope or weakness Psychiatric Psychiatric: Denies behavioral changes, change in appetite, confusion, depression, homicidal ideation, suicidal ideation or suicidal thoughts Endocrine Endocrinology: Denies excessive sweating, polydipsia or polyuria Hematologic/Lymphatic Hematologic/Lymphatic: Denies anemia Allergic/Immunologic Allergic/Immunologic: Denies itchy eyes, lip swelling, throat swelling, tongue swelling or wheezing Physical Exam Const alert, oriented x3 and no apparent distress General Appearance: cooperative Orientation / Consciousness: awake HEENT normocephalic Neck full ROM Lymph Lymphatic: no lymphadenopathy noted Chest inspection of chest normal Resp normal respiratory effort and normal air movement Effort and Inspection: able to speak in complete sentences and symmetric chest movement GI soft to palpation and non-tender Inspection: gravid Palpation: soft; Negative for tender external exam normal Back/Spine normal to inspection Extremity normal to inspection and full ROM Skin no rashes or lesions noted Psych mental status grossly normal Appearance: grossly normal Speech: normal speech Labs Labs Labs: Blood Type O POSITIVE Antibody Screen NEGATIVE Hct 35.1 % (37-47) L Hgb 11.6 g/dL (12.0-15.0) L Pap Smear Negative Obstetrics Ultrasound Syphilis Total Ab Non-reactive Rubella IgG Antibody Reactive (Nonreactive) Hep Bs Antigen Non-Reactive (Nonreactive) Hepatitis C Antibody Non-Reactive (Nonreactive) Chlamydia DNA (NICKY) Negative (Negative) N.gonorrhoeae DNA (NICKY) Negative (Negative) HIV 1&2 Antibody Non-Reactive (Nonreactive) Glucose 1 Hr 50 gm 99 mg/dL (70-140) Assessment & Plan (1) Encounter for induction of labor: PLAN: Patient presents IOL, plan management for with pitocin/AROM. Pain management: plans epidural. GBS positive- PCN planned. Management of any complications: none I have reviewed the [facility] and made any clinically relevant updates. (2) AMA (advanced maternal age) multigravida 35+: COMMENT: 36 week growth, delivery by 40 weeks (3) Positive GBS test: COMMENT: treat in labor recommended, r/b/a reviewed. plans on declining. (4) Varicosities of vulva: COMMENT: marion band (5) Varicosities of leg: QUALIFIERS: Varicose vein complication: pain Laterality: bilateral Qualified Code(s): I83.813 - Varicose veins of bilateral lower extremities with pain COMMENT: ASA low dose w/travel, support hose (6) SGA (small for gestational age), , affecting care of mother, antepartum: QUALIFIERS: Fetus number: single or unspecified fetus Qualified Code(s): O36.5990 - Maternal care for other known or suspected poor growth, unspecified trimester, not applicable or unspecified COMMENT: US 32 wk: EFW 11%; AC 19%. HC 10%. 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 on tirosint. (12) Family history of congenital heart defect: COMMENT: son had hole in heart, no surgery. offer echo if desired at 22-24/declines (13) Uterine fibroid in : Charges/Coding Multi Select Codes Urinary/Genital Urinary/Genital CPT Codes: No Charge
[2024-03-02] MEDS: Lactated Ringers 1,000 ML 50 ML IV (08:25)
[2024-03-02] MEDS: Oxytocin 15 Units/NS 250ml 15 UNITS/250 ML IV.SOLN 2 UNITS IV (08:46)
[2024-03-02 08:49] LABS: Absolute Neutrophil Count 7.5 X10^3/uL (2.0-7.7); Basophil# 0.03 X10^3/uL; Basophil% 0.3 % (0-1); Eosinophil# 0.38 X10^3/uL; Eosinophils% 3.9 % (0-5); Hematocrit 36.9 % (37-47); Hemoglobin 12.2 g/dL (12.0-15.0); Lymphocyte % 11.4 % (19-41); Mean Corp Hgb Conc 33.1 g/dL (32-36); Mean Corpuscular Hgb 29.1 pg (27.0-32.0); Mean Corpuscular Volume 88.1 fL (81-99); Mean Platelet Vol. 10.8 fl (6.2-12.0); Monocyte# 0.59 X10^3/uL; Monocyte% 6.1 % (0-10); NRBC Flagged by Analyzer 0 % (0-5); Neutrophil # 7.52 X10^3/uL (2.7-7.7); Platelet Count 240 K/mm3 (150-450); RBC Distribution Width CV 13.3 % (11.6-14.6); RBC Distribution Width SD 42.4 fl (35.1-43.9); Red Blood Count 4.19 M/mm3 (4.2-5.4); White Blood Count 9.7 K/mm3 (4.4-11.0)
[2024-03-02 09:41] LABS: Syphilis Antibodies Non-reactive
[2024-03-02] MEDS: Lactated Ringers 1,000 ML 999 ML IV (10:38)
[2024-03-02] MEDS: fentaNYL-bupivacaine (epidural) 100 ML BAG EPIDURAL (12:09)
[2024-03-02] MEDS: Ondansetron 4 MG/2 ML Vial IV ×2 (12:09→16:27)
--- NOTE | 2024-03-02 12:59 | PN_ITS ---
Progress Note comfortable with epidural current tracing: FHT: 135 Moderate variability reactive no decelerations category I tracing [place]: 2-4 Contractions Membranes:AROM clear 1255 SVE:8/80/0 A/P: Continue with position changes Titrate pitocin per protocol Epidural per anesthesia PCN for GBS prophylaxis Anticipate Dr Godinez aware of above assessment and agrees with plan of care Assessment & Plan Assessment/Plan (1) Encounter for induction of labor: (2) AMA (advanced maternal age) multigravida 35+: (3) Positive GBS test: (4) Varicosities of vulva: (5) Varicosities of leg: QUALIFIERS: Varicose vein complication: pain Laterality: bilateral Qualified Code(s): I83.813 - Varicose veins of bilateral lower extremities with pain (6) SGA (small for gestational age), , affecting care of mother, antepartum: QUALIFIERS: Fetus number: single or unspecified fetus Qualified C ode(s): O36.5990 - Maternal care for other known or suspected poor growth, unspecified trimester, not applicable or unspecified (7) Celiac disease: (8) Asthma: (9) Supervision of high-risk : QUALIFIERS: Trimester: third trimester Qualified Code(s): O09.93 - Supervision of high risk , unspecified, third trimester (10) : QUALIFIERS: Weeks of gestation: 39 weeks Qualified Code(s): Z3A.39 - 39 weeks gestation of (11) 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
[2024-03-02] MEDS: Oxytocin 15 Units/NS 250ml 15 UNITS/250 ML IV.SOLN 83 UNITS IV (14:36)
--- NOTE | 2024-03-02 15:04 | OP.PCM_ITS ---
Assessment & Plan (1) Vaginal delivery: COMMENT: KW IOL girl Elisa (2) Encounter for induction of labor: (3) AMA (advanced maternal age) multigravida 35+: COMMENT: 36 week growth, delivery by 40 weeks (4) Positive GBS test: COMMENT: treat in labor recommended, r/b/a reviewed. plans on declining. (5) Varicosities of vulva: COMMENT: marion band (6) Varicosities of leg: QUALIFIERS: Varicose vein complication: pain Laterality: bilateral Qualified Code(s): I83.813 - Varicose veins of bilateral lower extremities with pain COMMENT: ASA low dose w/travel, support hose (7) SGA (small for gestational age), , affecting care of mother, antepartum: QUALIFIERS: Fetus number: single or unspecified fetus Qualified Code(s): O36.5990 - Maternal care for other known or suspected poor growth, unspecified trimester, not applicable or unspecified COMMENT: US 32 wk: EFW 11%; AC 19%. HC 10%. 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 on tirosint. (13) Family history of congenital heart defect: COMMENT: son had hole in heart, no surgery. offer echo if desired at 22-24/ (14) Uterine fibroid in : Maternal Data Information DEBBIE Calculator Estimated Delivery Date Method Current WG Current Estimate 03/06/24 LMP (Certain) 39w 3d Final DEBBIE: 03/06/24 Final DEBBIE Source: US >20 weeks Gestational age: 39.3 Vaginal Delivery Maternal Presentation Maternal Presentation: Medically Indicated Induction Maternal Presentation: Progressed well to 10cm dilated and made steady progress with effective maternal pushing. Delivered the head in OP presentation. The head was delivered atraumatically and no nuchal cord was identified. The anterior and posterior shoulders delivered without complication followed by the rest of the infant and the was placed on the maternal abdomen. Delayed cord clamping was employed for approximately 3 minutes. Cord was clamped and cut and gentle traction was applied to the cord and the placenta delivered spontaneously. Immediately following, it was noted to be intact with a 3 vessel cord. The perineum and vagina were inspected and noted to have a second degree laceration which was repaired with 3-0 Vicryl in the usual fashion. EBL was 200cc. Patient and infant tolerated delivery well. Apgars 8/9. Dr Hyman notified of vaginal delivery and orders reviewed. Physician agrees with current plan of care. Type of Induction: Pitocin Medical Reason for Induction: Maternal Medical Condition: list: (AMA) Operative Information Date of Procedure: 03/02/24 Pre-Operative Diagnosis: See AP comments Post-Operative Diagnosis: Same Surgery / Procedure Performed: Spontaneous Vaginal Delivery mass spectroscopist #1: Pinky Burrell Type of Anesthesia: Epidural Estimated Blood Loss: 200 Time of Delivery: 14:06 Findings Presentation: Vertex Amniotic Membrane Rupture Type: Artificial Amniotic Fluid Description: Clear Placental Delivery Description: Spontaneous Placenta Disposition: [facility] Cord Vessel Description: 3 Vessels Cord Entanglement: None A Gender: Female (1 minute): 8 (5 minute): 9 Delayed Cord Clamping: Yes Post Vaginal Delivery Medications Given After Delivery: IV Pitocin Episiotomy Description: None Laceration: 2nd degree Complication Complications: None Multi Select Codes Urinary/Genital Urinary/Genital CPT Codes: 97747 Vaginal Delivery [facility]
--- NOTE | 2024-03-02 17:28 | DCINST_ITS ---
Discharge Instructions Diet Discharge Diet: No restrictions Activity Discharge Activity: Return to Normal Activity May resume sexual activity in: 6-8 weeks Dressing / Incision Call your doctor if you observe: Fever of 101 or Higher, Coldness, Increased Pain, Numbness or Tingling, Change in Color, Inability to urinate, Inability to have a bowel movement, Using more than 1 pad per hour, Shortness of breath, Dizziness, Fainting spells, Swelling in the ankles, Chest pain, Increased palpitations (irregular heartbeat), Calf discomfort and Uncontrolled pain Follow Up Care Please Follow Up With: Pinky Burrell CNM When: Please call the office to schedule your follow up appointment in 6 weeks. If you had high blood pressure please call to schedule an appointment in 2 weeks. Test Results: Test results from this visit will be discussed in further detail at your follow- up appointment, if applicable. Discharge Plan Admission Admit Date/Time: 03/02/24 07:18 Attending Provider: Pinky Burrell Primary Care Provider: Terrell Daly Discharge Orders/Prescriptions Prescriptions: No Action fluticasone propion-salmeterol [Advair HFA] 115-21 mcg/actuation HFA aerosol inhaler 1 puff INHALATION BID prenat.vits,eddie,mwi-illu-nmuun Tablet 1 tab PO DAILY digestive enzymes Capsule 1 cap PO DAILY Rx Instructions: administer with food; swallow whole; do not crush/chew/dissolve/break/cut Saccharomyces boulardii 250 mg capsule 250 mg PO BID Rx Instructions: swallow whole levothyroxine [Tirosint] 75 mcg capsule 88 mcg PO DAILY levothyroxine 88 mcg capsule 88 mcg PO DAILY cholecalciferol (vitamin D3) 25 mcg (1,000 unit) capsule 25 mcg PO DAILY ascorbic acid (vitamin C) 500 mg capsule PO magnesium chelate, malate 125 mg magnesium capsule 360 mg PO QHS Referrals / Follow Up: Terrell Daly MD [Primary Care Provider] -
[2024-03-02] MEDS: 0.9% Saline Lock 10 ML Syringe IV (17:43)
[2024-03-02] MEDS: Acetaminophen 500 MG Tablet 1000 MG PO (18:48)
[2024-03-03] VITALS (12 sets, daily range): BP systolic 102–111; BP diastolic 55–65; PULSE 61–75; RESP 16; TEMP 36.3–36.9; O2SAT 96–97
[2024-03-03] MEDS: Acetaminophen 500 MG Tablet 1000 MG PO (02:22)
[2024-03-03] MEDS: Senna/Docusate Sodium 1 Tablet PO (07:29)
[2024-03-03] MEDS: Ibuprofen 600 MG Tablet PO ×2 (07:30→17:53)
--- NOTE | 2024-03-03 07:40 | PCM.PN.OB ---
Subjective Subjective Patient doing well without complaints. Tolerating PO. Ambulating and voiding without difficulty. Feeding well. Denies chest pain, shortness of breath, calf pain/swelling, fevers, chills, lightheadedness. Objective Data Objective Data Vital Signs: Vital Signs Temp Pulse Resp BP Pulse Ox O2 Del Method 98.2 F 72 16 109/55 L 97 Room Air 03/03/24 04:02 03/03/24 07:37 03/03/24 04:02 03/03/24 07:37 03/03/24 04:02 03/03/24 04:02 Oxygen Delivery Method Room Air Weight: 155 lb 6.4 oz Body Mass Index (BMI) 25.8 Intake & Output: Intake and Output for Last 24 Hours 03/01/24 03/02/24 03/03/24 23:59 23:59 23:59 Intake Total / Output Total 1999 Balance 13.17 / Lab / Micro Data 03/02/24 08:25 Labs: Laboratory Results - last 24 hr 03/02/24 08:25: WBC 9.7, RBC 4.19 L, Hgb 12.2, Hct 36.9 L, MCV 88.1, MCH 29.1, MCHC 33.1, RDW Std Deviation 42.4, RDW Coeff of Rafiq 13.3, Plt Count 240, MPV 10.8, Immature Gran % (Auto) 0.300, Neut % (Auto) 78.0 H, Lymph % (Auto) 11.4 L, [place] % (Auto) 6.1, Eos % (Auto) 3.9, Baso % (Auto) 0.3, Absolute Neuts (auto) 7.5, Absolute Lymphs (auto) 1.10, Nucleated RBC % 0, Syphilis Total Ab Non-reactive, Blood Type O POSITIVE, Antibody Screen NEGATIVE Physical Exam Const alert and oriented x3 HEENT normocephalic Eyes PERRL Neck full ROM Resp normal respiratory effort GI soft to palpation GI Narrative: FF below U Assessment & Plan (1) Vaginal delivery: COMMENT: KW IOL girl Elisa (2) Positive GBS test: COMMENT: treat in labor recommended, r/b/a reviewed. declined PLAN: Plan s/p PPD # 1 1. routine post delivery care 2. breast feeding- support given 3. rh positive 4. rubella immune
[2024-03-04 02:13] VITALS: BP 105/52; PULSE 65; PULSE 68; RESP 16; TEMP 36.6; O2SAT 95
[2024-03-04] MEDS: Senna/Docusate Sodium 1 Tablet PO (02:26)
[2024-03-04] MEDS: Acetaminophen 500 MG Tablet 1000 MG PO (02:27)
[2024-03-04] MEDS: Levothyroxine 112 MCG Tablet PO (06:31)
--- NOTE | 2024-03-04 07:54 | PCM.PN.OB ---
Subjective Subjective Patient doing well without complaints. Tolerating PO. Ambulating and voiding without difficulty. Feeding well. Denies chest pain, shortness of breath, calf pain/swelling, fevers, chills, lightheadedness. Objective Data Objective Data Vital Signs: Vital Signs Temp Pulse Resp BP Pulse Ox O2 Del Method 97.9 F 65 16 105/52 L 95 Room Air 03/04/24 02:13 03/04/24 02:13 03/04/24 02:13 03/04/24 02:13 03/04/24 02:03/04/24 02:13 Oxygen Delivery Method Room Air Weight: 155 lb 6.4 oz Body Mass Index (BMI) 25.8 Intake & Output: Intake and Output for Last 24 Hours 03/02/24 03/03/24 03/04/24 23:59 23:59 23:59 Intake Total Output Total 1999 Balance 13. / Lab / Micro Data 03/02/24 08:25 Physical Exam Const alert and oriented x3 HEENT normocephalic Eyes PERRL Neck full ROM Resp normal respiratory effort GI soft to palpation GI Narrative: FF below U Assessment & Plan (1) Vaginal delivery: COMMENT: KW IOL girl Elisa PLAN: Plan s/p PPD #2 1. routine post delivery care 2. breast feeding- support given 3. rh positive 4. rubella immune 5. home today
[2024-03-04 09:06] VITALS: BP 110/59; PULSE 74; RESP 16; TEMP 36.2; O2SAT 99
[2024-03-04 09:07] VITALS: PULSE 76; O2SAT 99
[2024-03-04 12:38] VITALS: RESP 16
== END 2024-03-04 12:10 | disposition home or self-care (01) | DRG 807 ==
PROVIDERS: Admitting Provider Advanced Practice Midwife; PCP Family Medicine; Referring Provider Obstetrics & Gynecology; Visit Provider Advanced Practice Midwife
DX: O75.89 Other specified complications of labor and delivery (principal); Z37.0 Single live birth; D25.9 Leiomyoma of uterus, unspecified; B95.1 Streptococcus, group B, as the cause of diseases classified elsewhere; E03.9 Hypothyroidism, unspecified; E06.3 Autoimmune thyroiditis; J45.909 Unspecified asthma, uncomplicated; I83.813 Varicose veins of bilateral lower extremities with pain; O70.1 Second degree perineal laceration during delivery; O99.824 Streptococcus B carrier state complicating childbirth; O36.5930 Maternal care for other known or suspected poor fetal growth, third trimester, not applicable or unspecified; Z80.8 Family history of malignant neoplasm of other organs or systems; K90.0 Celiac disease; Z79.51 Long term (current) use of inhaled steroids; Z3A.39 39 weeks gestation of pregnancy; Z82.3 Family history of stroke; O99.62 Diseases of the digestive system complicating childbirth; O99.52 Diseases of the respiratory system complicating childbirth; O22.03 Varicose veins of lower extremity in pregnancy, third trimester; O99.284 Endocrine, nutritional and metabolic diseases complicating childbirth; O34.13 Maternal care for benign tumor of corpus uteri, third trimester; Z82.79 Family history of other congenital malformations, deformations and chromosomal abnormalities
CPT/HCPCS: 59025; 59050; 85025; 86780; 86850; 86900; 86901; 99221; J7120; A4216; G0378; J2405

== ENCOUNTER → 2024-06-04 | Outpatient (CLI) | payer OTHER, SELFPAY ==
--- NOTE | 2024-06-04 13:23 | US_ITS ---
INDICATION: pain EXAMINATION: Ultrasound US Pelvis Non OB Complete With Transvaginal Imaging TECHNIQUE: Transabdominal and transvaginal pelvic ultrasound was performed. Grayscale, spectral waveform, and color flow Doppler evaluation of the adnexa. COMPARISON: FINDINGS: UTERUS: Retroverted. The uterus measures 8.5 x 7.0 x 4.6 cm. There is a 1.4 x 1.6 cm fibroid. The endometrial stripe measures 4 mm in AP diameter which is within normal limits. RIGHT OVARY: 2.7 x 1.9 x 1.3 cm. Non-enlarged, normal echogenicity. There is normal arterial inflow and venous outflow present in the right ovary. LEFT OVARY: 3.2 x 1.8 x 1.7 cm. Non-enlarged, normal echogenicity. There is normal arterial inflow and venous outflow present in the left ovary. FREE FLUID: None. US/Pelvic w/ Transvaginal IMPRESSION: Retroverted uterus with a probable small fibroid. Electronically Signed: Noe Tellez DO at 18:52 EDT ,
== END | disposition home or self-care (01) ==
LOC: US 13:22
PROVIDERS: PCP Family Medicine; Referring Provider Nurse Practitioner Women's Health; Visit Provider Nurse Practitioner Women's Health
DX: R10.2 Pelvic and perineal pain (principal)
CPT/HCPCS: 76830; 76856

== ENCOUNTER → 2024-09-24 | Outpatient (CLI) | payer OTHER, SELFPAY | END | disposition home or self-care (01) | LOC: LABSPEC 11:40 | PROVIDERS: PCP Family Medicine; Referring Provider Nurse Practitioner Family; Visit Provider Nurse Practitioner Family | DX: R30.0 Dysuria (principal) | CPT/HCPCS: 87077; 87086; 87088; 87186 ==